=== PATIENT | female | born 1970 | race Caucasian/White ===

== ENCOUNTER → 2016-05-10 | Outpatient (CLI) | payer BC | LOC: MC.RAD 13:35 | DX: Z12.31 Encounter for screening mammogram for malignant neoplasm of breast (principal); N63 Unspecified lump in breast ==

== ENCOUNTER → 2016-05-12 | Outpatient (CLI) | payer BC | LOC: MC.RAD 08:19 | DX: N63 Unspecified lump in breast (principal); D24.2 Benign neoplasm of left breast ==

== ENCOUNTER → 2017-05-28 | Outpatient (CLI) | payer BC | LOC: MC.RAD 09:39 | DX: Z12.31 Encounter for screening mammogram for malignant neoplasm of breast (principal) ==

== ENCOUNTER → 2019-04-01 | Outpatient (CLI) | payer OTHER | LOC: MC.RAD 14:00 | DX: N60.02 Solitary cyst of left breast (principal); N63.20 Unspecified lump in the left breast, unspecified quadrant; N64.52 Nipple discharge ==

== ENCOUNTER → 2019-04-04 | Outpatient (CLI) | payer OTHER | LOC: MC.RAD 12:36 | DX: N63.42 Unspecified lump in left breast, subareolar (principal); Z98.82 Breast implant status ==

== ENCOUNTER 2019-05-27 10:39 | Day surgery (SDC) | payer OTHER ==
[~2019-05-27] VITALS: Ht 177.8 cm; Wt 84.5 kg
[2019-05-27 11:18] VITALS: BP 142/78; PULSE 84; TEMP 97.8
[2019-05-27] MEDS ORDERED: MULTI VITAMINS1 TAB PO (11:22)
--- NOTE | 2019-05-27 11:24 | NUR ---
TO RM AT 1045- CALL LIGHT IN REACH WILL SHOP BLACKSMITH PATIENT AT TIME OF DISCHARGE
[2019-05-27 13:29] VITALS: BP 130/73; PULSE 65; TEMP 98
--- NOTE | 2019-05-27 13:29 | NUR ---
TO RM 7 PER CART FROM OR. SLIGHTLY DROWSY AND ANSWERS QUESTIONS COHERENTLY. DRESSING CLEAN DRY INTACT. RECEIVED WATER DENIES PAIN OR DISCOMFORT DENIES NAUSEA OR VOMITING. C/O "SLIGHT DIZZYNESS"
[2019-05-27] MEDS ORDERED: NORCO 325 MG-51 TAB PO (13:35)
[2019-05-27 13:45] VITALS: BP 128/77; PULSE 58
--- NOTE | 2019-05-27 13:45 | NUR ---
RECEIVED 2ND CUP OF WATER AND 2 PIECES OF TOAST.
[2019-05-27 14:00] VITALS: BP 119/65; PULSE 65
--- NOTE | 2019-05-27 14:00 | NUR ---
ATE 100% AND TOLERATED WELL.
[2019-05-27 14:15] VITALS: BP 127/81; PULSE 70
--- NOTE | 2019-05-27 14:20 | NUR ---
AMBULATED TO BATHROOM WITH STAND BY ASSIST AND TOLERATED WELL.
--- NOTE | 2019-05-27 14:30 | NUR ---
RECEIVED DISCHARGE INSTRUCTIONS AND VERBALIZED UNDERSTANDING. PATIENT CALLING FOR A RIDE HOME.
--- NOTE | 2019-05-27 14:40 | NUR ---
DISCHARGED PER WC BY NURSING STAFF TO PRIVATE CAR IN CARE OF - MORENITA
== END 2019-05-27 14:47 | disposition home or self-care (01) ==
LOC: SDCO 10:39
DX: N60.92 Unspecified benign mammary dysplasia of left breast (principal); Z80.0 Family history of malignant neoplasm of digestive organs; Z79.899 Other long term (current) drug therapy
CPT/HCPCS: J0690; J2250; J2704; J3010; J7120

== ENCOUNTER → 2020-01-12 | Outpatient (CLI) | payer OTHER ==
[~2020-01-12] MED LIST: MULTI VITAMINS1 TAB PO; NORCO 325 MG-51 TAB PO
== END ==
LOC: MC.RAD 12:57
DX: N60.32 Fibrosclerosis of left breast (principal); N63.20 Unspecified lump in the left breast, unspecified quadrant; Z98.890 Other specified postprocedural states

== ENCOUNTER → 2020-01-14 | Outpatient (CLI) | payer OTHER | LOC: MC.RAD 07:00 | DX: R92.2 Inconclusive mammogram (principal) ==